=== PATIENT | female | born 1945 | race Caucasian/White ===

== ENCOUNTER 2016-06-28 18:05 | Inpatient (IN) | payer OTHER, BC ==
[~2016-06-28] VITALS: Ht 157.5 cm; Wt 50.8 kg
[~2016-06-28 18:05] MED LIST: ANUCORT-HC25 MG RC; ATIVAN1 MG PO; COLACE100 MG PO; DIOVAN HCT 1601 EACH PO; DONNATAL1 TABLET PO; FIORICET,ESG1 TABLET PO; IMODIUM2 MG PO; INDERAL LA80 MG PO; KADIAN80 MG PO; MARINOL5 MG PO; MS CONTIN,ORAMO60 MG PO; PEPTO; PERI-COLACE TA1 EACH PO; PRILOSEC40 MG PO; RITALIN10 MG PO; SENIOR VITAMIN; VAGIFEM10 MCG PO; VITAMIN B12
[2016-06-28 19:40] LABS: CARBON DIOXIDE (BICARBONATE) 33.3 MEQ/L (20-31)
[2016-06-28 19:43] LABS: HEMATOCRIT 45.5 % (36.0-46.0); MCH 33.5 PG (29.0-34.0); MCHC 35.8 G/DL (30.0-36.0); MCV 93.4 FL (83-99); MEAN PLAT.VOLUME 9.8 uM^3 (9.5-12.4); PLATELET COUNT 311 K/uL (156-360); RBC DIS.WIDTH-CV 11.8 % (11.8-14.6); RBC DIS.WIDTH-SD 40.8 % (39-53); RED BLOOD COUNT 4.87 M/uL (3.80-5.20); WHITE BLOOD COUNT 8.6 K/uL (4.1-10.2)
[2016-06-28 19:58] LABS: D-DIMER ELISA 0.77 mg/L FEU (< 0.57)
[2016-06-28 19:59] LABS: CHLORIDE 94 mEq/L (99-109); POTASSIUM 3.8 mEq/L (3.7-5.4); SODIUM 131 mEq/L (136-147)
[2016-06-28 20:00] LABS: GLUCOSE 172 mg/dL (70-99)
[2016-06-28 20:02] LABS: ANION GAP 13 MEQ/L (2-14)
[2016-06-28 20:04] LABS: GFR ESTIMATE (CALCULATED) > 59 mL/min/
[2016-06-28 20:05] LABS: UREA NITROGEN (BUN) 5 mg/dL (9-23)
[2016-06-28 20:11] LABS: TROP-I INTERPRETATION NEGATIVE; TROPONIN-I < 0.01 ng/mL (0.0-0.30)
[2016-06-28] MEDS ORDERED: ATIVAN1 MG PO (21:02)
[2016-06-28] MEDS ORDERED: AMLODIPINE BESYL5 MG PO (22:31)
[2016-06-28] MEDS ORDERED: IRBESARTAN150 MG PO (22:31)
[2016-06-28] MEDS ORDERED: PROPRANOLOL HC160 MG PO (22:32)
[2016-06-28] MEDS ORDERED: MORPHINE CON20 MG/M1 PO (22:33)
[2016-06-28] MEDS ORDERED: MORPHINE SULFAT30 M2 PO (22:34)
[2016-06-28] MEDS ORDERED: METHYLPHENIDATE10 M1 PO (22:34)
[2016-06-28] MEDS ORDERED: OMEPRAZOLE40 M1 PO (22:35)
[2016-06-28] MEDS ORDERED: COLACE100 MG PO (22:36)
[2016-06-28] MEDS ORDERED: PERI-COLACE TA1 EACH PO (22:37)
[2016-06-28] MEDS ORDERED: CENTRUM SILVER1 EAC3 PO (22:38)
[2016-06-28] MEDS ORDERED: VITAMIN D31000 UNIT PO (22:38)
[2016-06-28] MEDS ORDERED: ATARAX10 MG PO (22:39)
[2016-06-28] MEDS ORDERED: AMITRIPTYLINE H10 MG PO (22:39)
[2016-06-28] MEDS ORDERED: PROBIOTIC1 EAC1 PO (22:40)
[2016-06-28] MEDS ORDERED: KETOCONAZOLE60 GM TP (22:40)
[2016-06-28] MEDS ORDERED: TERBINAFINE HC250 MG PO (22:41)
[2016-06-28] MEDS ORDERED: COMBIVENT RESPIM4 GM IH (22:41)
[2016-06-28] MEDS ORDERED: NORITATE60 GM TP (22:41)
[2016-06-28] MEDS ORDERED: FIORICET,ESG1 TABLET PO (22:42)
[2016-06-28] MEDS ORDERED: BENTYL20 MG PO (22:42)
[2016-06-29] VITALS (8 sets, daily range): BP systolic 136–171; BP diastolic 72–95
[2016-06-29] MEDS ORDERED: ATIVAN1 MG PO ×3 (01:06→14:57)
[2016-06-29] MEDS ORDERED: AVAPRO150 MG PO (01:07)
[2016-06-29] MEDS ORDERED: NORVASC5 MG PO (01:07)
[2016-06-29] MEDS ORDERED: INDERAL LA160 MG PO (01:08)
[2016-06-29] MEDS ORDERED: MORPHINE CON20 MG/M1 PO (01:10)
[2016-06-29] MEDS ORDERED: ARYMO ER30 MG PO (01:11)
[2016-06-29] MEDS ORDERED: OMEPRAZOLE40 M1 PO (01:14)
[2016-06-29] MEDS ORDERED: RITALIN10 MG PO (01:14)
[2016-06-29] MEDS ORDERED: COLACE100 MG PO ×2 (01:15→15:03)
[2016-06-29] MEDS ORDERED: PERI-COLACE TA1 EACH PO (01:15)
[2016-06-29] MEDS ORDERED: CENTRUM SILVER1 EAC3 PO (01:15)
[2016-06-29] MEDS ORDERED: ATARAX10 MG PO (01:16)
[2016-06-29] MEDS ORDERED: VITAMIN D31000 UNI2 PO (01:16)
[2016-06-29] MEDS ORDERED: PROBIOTIC1 EAC1 PO (01:17)
[2016-06-29] MEDS ORDERED: ELAVIL10 MG PO (01:17)
[2016-06-29] MEDS ORDERED: NIZORAL 2% CREA15 GM TP (01:18)
[2016-06-29] MEDS ORDERED: COMBIVENT RESPIM4 GM IH (01:20)
[2016-06-29] MEDS ORDERED: NORITATE60 GM TP (01:20)
[2016-06-29] MEDS ORDERED: TERBINAFINE HC250 MG PO (01:21)
[2016-06-29] MEDS ORDERED: BENTYL20 MG PO (01:21)
[2016-06-29] MEDS ORDERED: FLONASE16 G1 BOTH NARES (01:22)
[2016-06-29] MEDS ORDERED: FIORICET,ESG1 TABLET PO (01:22)
[2016-06-29] MEDS ORDERED: SYSTANE GEL EYE10 ML BOTH EYES (01:23)
[2016-06-29] MEDS ORDERED: SYMBICORT60 INHALAT IH (01:24)
[2016-06-29] MEDS ORDERED: SPIRIVA1 INHALATI IH (01:24)
[2016-06-29] MEDS ORDERED: NYSTATIN100000 UN1 PO (01:25)
[2016-06-29] MEDS ORDERED: ANUSOL HC,ANUCO25 MG PR (01:26)
[2016-06-29] MEDS ORDERED: PROAIR HFA8.5 GM IH (01:27)
[2016-06-29] MEDS ORDERED: LIDOCAINE700 MG TD (01:27)
[2016-06-29] MEDS ORDERED: TIGER BALM OINTM8 GM TP (01:28)
[2016-06-29] MEDS ORDERED: PEPTO-BISM525 MG/15 PO (01:29)
[2016-06-29] MEDS ORDERED: VOLTAREN 1% GE100 GM TP (01:29)
[2016-06-29 06:28] LABS: POINT-OF-CARE METER ID UU14162513
[2016-06-29 06:29] LABS: ANION GAP 9 MEQ/L (2-14); CHLORIDE 90 MEQ/L (99-109); GFR ESTIMATE (CALCULATED) > 59 mL/min/; GLUCOSE 211 mg/dL (70-99); POTASSIUM 3.8 MEQ/L (3.7-5.4); SAMPLE HEMOLYSIS CHECK 0; SAMPLE ICTERIC CHECK 0; SAMPLE LIPEMIA CHECK 0; SODIUM 125 MEQ/L (136-147); UREA NITROGEN (BUN) 4 mg/dL (9-23)
[2016-06-29 07:05] LABS: HEMATOCRIT 48.5 % (36.0-46.0); MCH 32.9 PG (29.0-34.0); MCHC 35.9 G/DL (30.0-36.0); MCV 91.7 FL (83-99); MEAN PLAT.VOLUME 9.8 uM^3 (9.5-12.4); PLATELET COUNT 275 K/uL (156-360); RBC DIS.WIDTH-CV 11.8 % (11.8-14.6); RBC DIS.WIDTH-SD 39.5 % (39-53); RED BLOOD COUNT 5.29 M/uL (3.80-5.20)
[2016-06-29 08:01] LABS: TROP-I INTERPRETATION NEGATIVE; TROPONIN-I < 0.01 ng/mL (0.0-0.30)
[2016-06-29] MEDS ORDERED: MS CONTIN,ORAMO30 MG PO ×2 (15:02)
[2016-06-29] MEDS ORDERED: NICODERM CQ1 EAC2 TD (15:05)
[2016-06-29] MEDS ORDERED: AZITHROMYCIN250 MG PO (15:06)
[2016-06-29] MEDS ORDERED: ALBUTEROL2.5 MG/3 M IH (15:07)
[2016-06-29] MEDS ORDERED: COMPAZINE10 MG PO (15:08)
[2016-06-29] MEDS ORDERED: DUONEB 2.5-0.5 M3 ML AEROSOL (15:08)
[2016-06-29 18:48] LABS: ANION GAP 11 MEQ/L (2-14); CHLORIDE 92 MEQ/L (99-109); GFR ESTIMATE (CALCULATED) > 59 mL/min/; GLUCOSE 272 mg/dL (70-99); POTASSIUM 3.5 MEQ/L (3.7-5.4); SAMPLE HEMOLYSIS CHECK 0; SAMPLE ICTERIC CHECK 0; SAMPLE LIPEMIA CHECK 0; SODIUM 127 MEQ/L (136-147); UREA NITROGEN (BUN) 7 mg/dL (9-23)
[2016-06-30 04:33] VITALS: BP 162/82
[2016-06-30 07:05] LABS: EOSINOPHIL (%) 0 % (0-5); HEMATOCRIT 43.3 % (36.0-46.0); IMMATURE GRANULOCYTE (%) 0.6 % (0.0-0.7); IMMATURE GRANULOCYTE COUNT 0.1 K/uL; INSTRUMENT ABS NEUTROPHIL CT 11.8 K/uL; MCHC 35.6 G/DL (30.0-36.0); MCV 92.9 FL (83-99); MEAN PLAT.VOLUME 9.7 uM^3 (9.5-12.4); MONOCYTE (%) 6.8 % (3-12); NEUTROPHIL (%) 85.1 % (45-76); NEUTROPHIL COUNT 11.8 K/uL (1.8-6.4); PLATELET COUNT 292 K/uL (156-360); RBC DIS.WIDTH-CV 12.2 % (11.8-14.6); RBC DIS.WIDTH-SD 41.7 % (39-53); RED BLOOD COUNT 4.66 M/uL (3.80-5.20)
[2016-06-30 07:29] LABS: WHITE BLOOD COUNT 13.9 K/uL (4.1-10.2)
[2016-06-30 07:36] LABS: ANION GAP 10 MEQ/L (2-14); CHLORIDE 96 MEQ/L (99-109); GFR ESTIMATE (CALCULATED) > 59 mL/min/; GLUCOSE 168 mg/dL (70-99); SAMPLE HEMOLYSIS CHECK 0; SAMPLE ICTERIC CHECK 0; SAMPLE LIPEMIA CHECK 0; SODIUM 131 MEQ/L (136-147); UREA NITROGEN (BUN) 9 mg/dL (9-23)
[2016-06-30 08:05] VITALS: BP 190/90
[2016-06-30 08:51] LABS: INTERNAL CONTROL VALID? YES
[2016-06-30 12:04] LABS: ADD MIUA? YES; BILIRUBIN NEGATIVE; BLOOD SMALL; COLOR STRAW ((YELLOW)); GLUCOSE (STRIP) 50; KETONES NEGATIVE; LEUKOCYTES NEGATIVE; NITRITE NEGATIVE; PROTEIN (STRIP) NEGATIVE; SPECIFIC GRAVITY 1.008 (1.000-1.030); UROBILINOGEN 0.2 MG/DL (0.2-1.0)
[2016-06-30 12:07] LABS: BACTERIA RARE /HPF; EPITHELIAL CELLS NONE SEEN /HPF; MUCUS TRACE /LPF; RED BLOOD CELLS 0-5 /HPF (0-5); UCUL ADDED? NO; WHITE BLOOD CELLS 0-5 /HPF (0-5)
[2016-06-30 12:10] VITALS: BP 167/72
[2016-06-30 16:00] VITALS: BP 145/76
[2016-06-30 19:50] VITALS: BP 177/88
[2016-07-01 00:01] VITALS: BP 157/80
[2016-07-01 07:12] LABS: ANION GAP 6 MEQ/L (2-14); CHLORIDE 95 MEQ/L (99-109); GFR ESTIMATE (CALCULATED) > 59 mL/min/; GLUCOSE 120 mg/dL (70-99); POTASSIUM 4.1 MEQ/L (3.7-5.4); SAMPLE HEMOLYSIS CHECK 0; SAMPLE ICTERIC CHECK 0; SAMPLE LIPEMIA CHECK 0; SODIUM 128 MEQ/L (136-147); UREA NITROGEN (BUN) 11 mg/dL (9-23)
[2016-07-01 07:43] LABS: HEMATOCRIT 37.4 % (36.0-46.0); MCH 32.2 PG (29.0-34.0); MCV 94.9 FL (83-99); MEAN PLAT.VOLUME 9.4 uM^3 (9.5-12.4); PLATELET COUNT 257 K/uL (156-360); RBC DIS.WIDTH-CV 12.1 % (11.8-14.6); RBC DIS.WIDTH-SD 42.6 % (39-53); RED BLOOD COUNT 3.94 M/uL (3.80-5.20); WHITE BLOOD COUNT 12.4 K/uL (4.1-10.2)
[2016-07-01 09:00] VITALS: BP 158/71
[2016-07-01 12:30] VITALS: BP 186/87
[2016-07-01 17:00] VITALS: BP 141/78
[2016-07-01 20:30] VITALS: BP 154/96
[2016-07-02 01:00] VITALS: BP 124/60
[2016-07-02 04:30] VITALS: BP 181/87
[2016-07-02 06:47] LABS: HEMATOCRIT 39.5 % (36.0-46.0); MCH 32.7 PG (29.0-34.0); MCHC 34.7 G/DL (30.0-36.0); MCV 94.3 FL (83-99); MEAN PLAT.VOLUME 9.6 uM^3 (9.5-12.4); PLATELET COUNT 276 K/uL (156-360); RBC DIS.WIDTH-SD 41.8 % (39-53); RED BLOOD COUNT 4.19 M/uL (3.80-5.20); WHITE BLOOD COUNT 12.3 K/uL (4.1-10.2)
[2016-07-02 07:09] LABS: ANION GAP 7 MEQ/L (2-14); CHLORIDE 93 MEQ/L (99-109); GFR ESTIMATE (CALCULATED) > 59 mL/min/; GLUCOSE 124 mg/dL (70-99); SAMPLE HEMOLYSIS CHECK 0; SAMPLE ICTERIC CHECK 0; SAMPLE LIPEMIA CHECK 0; SODIUM 129 MEQ/L (136-147); UREA NITROGEN (BUN) 12 mg/dL (9-23)
[2016-07-02 07:45] VITALS: BP 171/90
[2016-07-02 12:15] VITALS: BP 177/93
[2016-07-02] MEDS ORDERED: DOXYCYCLINE HY100 M3 PO (12:15)
[2016-07-02] MEDS ORDERED: BETHANECHOL CHL25 MG PO (12:15)
[2016-07-02] MEDS ORDERED: SYMBICORT60 INHALAT IH (12:15)
[2016-07-02] MEDS ORDERED: SPIRIVA1 INHALATI IH (12:15)
[2016-07-02] MEDS ORDERED: MEDROL DOSEPAK4 MG PO (12:15)
== END 2016-07-02 14:30 | disposition home or self-care (01) | DRG 190 ==
LOC: EME → EDBD 18:05 → EME 18:05 → EDOF 06-29 00:31 → 5WEST 06-29 00:31 → 4EAST 06-29 09:26
PROVIDERS: Emergency Medicine; Hospitalist; Internal Medicine; Internal Medicine Pulmonary Disease
DX: J44.1 Chronic obstructive pulmonary disease with (acute) exacerbation (principal); J18.0 Bronchopneumonia, unspecified organism; E87.1 Hypo-osmolality and hyponatremia; I10 Essential (primary) hypertension; K21.9 Gastro-esophageal reflux disease without esophagitis; F17.210 Nicotine dependence, cigarettes, uncomplicated; R91.8 Other nonspecific abnormal finding of lung field; G89.29 Other chronic pain; M54.9 Dorsalgia, unspecified; F41.9 Anxiety disorder, unspecified; R33.9 Retention of urine, unspecified; N39.41 Urge incontinence; J44.0 Chronic obstructive pulmonary disease with (acute) lower respiratory infection
CPT/HCPCS: 71010; 71020; 71275; 80048; 80048 91; 81003; 82803; 82948; 83605; 83880; 84484; 85025; 85027; 85379; 87040; 87070; 87205; 87449; 93005; 94640; 94640 76; 94760; 94799; 99202; 99281; 99285; G8987 GO CI; G8988 CI; G8989 GO CI; J0360; J0456; J1100; J1644; J1940; J2270; J2405; J2765; J2930; J7030; J7050; J8540; S0028; S0073